=== PATIENT | male | born 1975 | race Two or more races ===

== ENCOUNTER 2018-07-21 17:32 | Inpatient (IN) | payer OTHER ==
[2018-07-21 20:40] VITALS: BMI 20.9
[2018-07-22] MEDS ORDERED: MENTHOL/PHENOL 1 EACH UD MM PRN (00:15)
[2018-07-22] MEDS ORDERED: NICOTINE POLACRILEX 2 MG GUM BC PRN (00:15)
[2018-07-22] MEDS ORDERED: MAGNESIUM CITRATE 300 ML BOTTLE PO PRN (00:15)
[2018-07-22] MEDS ORDERED: MAGNESIUM HYDROX 2400MG/30ML ORAL SUSPENSION 30 ML CUP PO PRN (00:15)
[2018-07-22] MEDS ORDERED: LOPERAMIDE HCL 2 MG CAPSULE PO PRN (00:15)
[2018-07-22] MEDS ORDERED: ACETAMINOPHEN 325 MG TABLET (FP) PO PRN (00:15)
[2018-07-22] MEDS ORDERED: MAG HYDROX/AL HYDROX/SIMETH 30 ML UNIT-DOSE CUP PO PRN (00:15)
[2018-07-22] MEDS ORDERED: IBUPROFEN 400 MG TABLET (FP) PO PRN (00:15)
[2018-07-22] MEDS ORDERED: chlordiazePOXIDE HCL 25 MG CAPSULE PO PRN ×2 (00:15→03:25)
[2018-07-22] MEDS ORDERED: P-EPHED 60MG/TRIPROLIDI 2.5MG TABLET PO PRN (00:15)
[2018-07-22] MEDS ORDERED: guaiFENesin 200 MG/10 ML 10 ML UNIT-DOSE CUPS PO PRN (00:18)
[2018-07-22] MEDS ORDERED: BUPRENORPHINE/NALOXONE 8 MG/2 MG FILM PACKET SL ONE ×2 (00:21→03:30)
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
[2018-07-22] MEDS: chlordiazePOXIDE HCL 25 MG CAPSULE PO SCH ×4 (05:00→22:50)
[2018-07-22] MEDS ORDERED: PRENATAL VITAMINS W/ FOLIC ACID TABLET (FP) PO SCH (10:00)
[2018-07-22] MEDS: BUPRENORPHINE/NALOXONE 2 MG/0.5 MG FILM PACKET SL SCH ×2 (10:27→22:49)
--- NOTE | 2018-07-22 14:44 | PN ---
S CIWA - CIWA Score Nausea/Vomitin-No Nausea/No Vomiting Muscle Tremors: 2 Anxiety: 3 Agitation: 0-Normal Activity Paroxysmal Sweats: 2 Orientation: 0-Oriented Tacttile Disturbances: 2-Mild Itch/Numbness/Burn Auditory Disturbances: 0-None Visual Disturbances: 2-Mild Sensitivity Headache: 0-None Present CIWA-Ar Total Score: 11 BHS Progress Note (SOAP) Subjective: Nasal Congestion, Sweating, Tremors, Hot / Cold Sensations. Objective: PATIENT A & O X 3. IN NO ACUTE DISTRESS. 07/22/18 14:43 Vital Signs Temperature 98.1 F 07/22/18 13:51 Pulse Rate 68 07/22/18 13:51 Respiratory Rate 18 07/22/18 13:51 Blood Pressure 129/70 07/22/18 13:51 O2 Sat by Pulse Oximetry (%) ADMISSION LAB RESULTS PENDING. Assessment: 07/22/18 14:44 WITHDRAWAL SYMPTOMS. Plan: CONTINUE DETOX. PRN ACTIFED FOR NASAL CONGESTION.
--- NOTE | 2018-07-22 16:47 | EKG ---
Test Reason : Blood Pressure : / mmHG Vent. Rate : 048 BPM Atrial Rate : 048 BPM P-R Int : 112 ms QRS Dur : 100 ms QT Int : 470 ms P-R-T Axes : 061 052 058 degrees QTc Int : 419 ms SINUS BRADYCARDIA OTHERWISE NORMAL ECG NO PREVIOUS ECGS AVAILABLE Confirmed by MICHAEL FARRIS MD ([id number]) on 07/22/2018 4:47:34 PM Referred By: Confirmed By:MICHAEL FARRIS MD
[2018-07-22 21:44] LABS: URINE APPEARANCE TURBID; URINE BILIRUBIN NEGATIVE (<2.0 mg/dL); URINE COLOR YELLOW; URINE GLUCOSE (UA) NEGATIVE (NEGATIVE); URINE KETONE NEGATIVE (NEGATIVE); URINE LEUK ESTERASE NEGATIVE (NEGATIVE); URINE NITRITE NEGATIVE (NEGATIVE); URINE PROTEIN NEGATIVE (NEGATIVE); URINE UROBILINOGEN NEGATIVE mg/dL (0.2-1.0)
[2018-07-22] MEDS ORDERED: MELATONIN 5 MG TABLETS PO PRN (22:00)
[2018-07-22] MEDS ORDERED: THIAMINE HCL 100 MG TABLET (FP) PO SCH (22:00)
[2018-07-22] MEDS ORDERED: chlordiazePOXIDE HCL 25 MG CAPSULE PO SCH (23:00)
[2018-07-23] MEDS ORDERED: chlordiazePOXIDE HCL 25 MG CAPSULE PO SCH ×2 (05:00→23:00)
[2018-07-23 06:27] VITALS: PULSE 55
--- NOTE | 2018-07-23 08:54 | PN ---
[facility] Progress Note Note: pt refused to continue with his detox. pt refused to accept any medication, counseling, or assistance of any kind. pt refused to wait for any discharge papers or to be escorted by nursing staff. Pt left AMA and escorted by security.
--- NOTE | 2018-07-23 09:02 | DS ---
[facility] Detox Discharge Summary Admission Date: 07/22/18 - Physical Exam Results Vital Signs: Vital Signs Temperature 97.9 F 07/23/18 06:27 Pulse Rate 55 L 07/23/18 06:27 Respiratory Rate 16 07/23/18 06:27 Blood Pressure 104/61 07/23/18 06:27 O2 Sat by Pulse Oximetry (%) - Treatment Hospital Course: Discharged Condition Good - Medication Discharge Medications: Ambulatory Orders NK [No Known Home Medication] 07/22/18 - AMA Did Patient Leave Against Medical Advice: Yes (going home)
[2018-07-23 09:09] VITALS: BP 112/58; TEMP 98.9
[2018-07-23] MEDS ORDERED: BUPRENORPHINE/NALOXONE 2 MG/0.5 MG FILM PACKET SL SCH (10:00)
[2018-07-23 10:08] LABS: MCH 30.5 pg (25.7-33.7); MCHC 34.2 g/dl (32.0-35.9); MEAN PLT VOLUME 8.8 fl (7.5-11.1); PLATELET COUNT 333 K/MM3 (134-434); RDW 13.6 % (11.9-15.9); WHITE BLOOD COUNT 11.5 K/mm3 (4.0-10.0)
[2018-07-23 10:52] LABS: ALBUMIN 3.7 g/dl (3.4-5.0); ALK PHOS 101 U/L (45-117); ANION GAP 7 MMOL/L (8-16); BILIRUBIN,TOTAL 0.4 mg/dL (0.2-1); BLOOD UREA NITROGEN 8 mg/dL (7-18); CALCIUM 9.7 mg/dL (8.5-10.1); CHLORIDE 104 mmol/L (98-107); CO2 26 mmol/L (21-32); CREATININE 0.7 mg/dL (0.55-1.3); GLUCOSE,RANDOM 100 mg/dL (74-106); POTASSIUM 4.4 mmol/L (3.5-5.1); SGOT/AST 16 U/L (15-37); SGPT/ALT 12 U/L (13-61); SODIUM 137 mmol/L (136-145); TOT PROT 7.3 g/dl (6.4-8.2)
[2018-07-23] MEDS ORDERED: BUPRENORPHINE/NALOXONE 2 MG/0.5 MG FILM PACKET SL ONE (18:00)
[2018-07-24] MEDS ORDERED: chlordiazePOXIDE 5 MG CAPSULE PO SCH ×2 (05:00→23:00)
[2018-07-25] MEDS ORDERED: chlordiazePOXIDE HCL 10 MG CAPSULE PO SCH ×2 (05:00→23:00)
[2018-07-25] MEDS ORDERED: BUPRENORPHINE/NALOXONE 2 MG/0.5 MG FILM PACKET SL ONE (10:00)
== END 2018-07-23 08:22 | disposition left against medical advice (07) | DRG 770 ==
LOC: YASAS 17:32 → UNDOADMIN 22:01 → Y3N 22:01 → Y6N 07-22 02:37
PROVIDERS: ADMIT Surgery; ATTEND Surgery
PROC: HZ2ZZZZ Detoxification Services for Substance Abuse Treatment (ICD-10-PCS; principal; 2018-07-22)
DX: F10.230 Alcohol dependence with withdrawal, uncomplicated (principal); F17.210 Nicotine dependence, cigarettes, uncomplicated; F32.9 Major depressive disorder, single episode, unspecified; F41.9 Anxiety disorder, unspecified; J45.20 Mild intermittent asthma, uncomplicated
CPT/HCPCS: 36415; 80053; 81003; 85027; 86593; 93005; 93010

== ENCOUNTER 2018-11-30 14:30 | Inpatient (IN) | payer OTHER | END 2018-12-02 10:00 | disposition left against medical advice (07) | LOC: YASAS 14:30 → Y3N 19:18 ==

== ENCOUNTER 2019-03-05 13:45 | Inpatient (IN) | payer OTHER ==
[2019-03-05 14:32] VITALS: BMI 19.9
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
[2019-03-05] MEDS ORDERED: METHADONE HCL 10 MG TABLET (FOR DETOX USE ONLY) PO ONE (17:12)
[2019-03-05] MEDS ORDERED: NALOXONE HCL 0.4 MG/ML VIAL IM PRN (17:12)
[2019-03-05] MEDS ORDERED: chlordiazePOXIDE HCL 10 MG CAPSULE PO PRN (17:12)
[2019-03-05] MEDS ORDERED: MAGNESIUM HYDROX 2400MG/30ML ORAL SUSPENSION 30 ML CUP PO PRN (17:12)
[2019-03-05] MEDS ORDERED: hydrOXYzine PAMOATE 25 MG CAPSULE (FP) PO PRN (17:12)
[2019-03-05] MEDS ORDERED: IBUPROFEN 400 MG TABLET (FP) PO PRN (17:12)
[2019-03-05] MEDS ORDERED: MELATONIN 5 MG TABLETS PO PRN (17:12)
[2019-03-05] MEDS ORDERED: cloNIDine HCL 0.1 MG TABLET PO PRN (17:12)
[2019-03-05] MEDS ORDERED: MENTHOL/PHENOL 1 EACH UD MM PRN (17:12)
[2019-03-05] MEDS ORDERED: MAG HYDROX/AL HYDROX/SIMETH 30 ML UNIT-DOSE CUP PO PRN (17:12)
[2019-03-05] MEDS ORDERED: NICOTINE POLACRILEX 2 MG GUM BUC PRN (17:12)
[2019-03-05] MEDS ORDERED: METHOCARBAMOL 500 MG TABLET PO PRN (17:12)
[2019-03-05] MEDS ORDERED: MAGNESIUM CITRATE 300 ML BOTTLE PO PRN (17:12)
[2019-03-05] MEDS ORDERED: BISMUTH SUBSALICYLATE 524 MG/30 ML UD PO PRN (17:12)
[2019-03-05] MEDS ORDERED: ACETAMINOPHEN 325 MG TABLET (FP) PO PRN ×2 (17:12)
[2019-03-05] MEDS ORDERED: chlordiazePOXIDE HCL 25 MG CAPSULE PO ONE (17:12)
[2019-03-05] MEDS ORDERED: ALBUTEROL SO4 8 GM HFA INHALER IH PRN (17:14)
[2019-03-05] MEDS: chlordiazePOXIDE HCL 25 MG CAPSULE PO SCH (23:56)
[2019-03-05] MEDS: THIAMINE HCL 100 MG TABLET (FP) PO SCH (23:56)
[2019-03-06] MEDS: chlordiazePOXIDE HCL 25 MG CAPSULE PO SCH ×3 (05:13→22:28)
[2019-03-06 09:17] LABS: ALBUMIN 3.5 g/dl (3.4-5.0); BILIRUBIN,TOTAL 0.5 mg/dL (0.2-1); CALCIUM 9.6 mg/dL (8.5-10.1); CREATININE 0.8 mg/dL (0.55-1.3); POTASSIUM 4.3 mmol/L (3.5-5.1)
[2019-03-06 09:21] LABS: HEMATOCRIT 40.9 % (35.4-49); HEMOGLOBIN 13.6 GM/dL (11.7-16.9); MCH 30.4 pg (25.7-33.7); MCHC 33.3 g/dl (32.0-35.9); MEAN CELL VOLUME 91.2 fl (80-96); MEAN PLT VOLUME 8.5 fl (7.5-11.1); PLATELET COUNT 316 K/MM3 (134-434); RBC 4.48 M/mm3 (4.00-5.60); RDW 13.2 % (11.9-15.9); WHITE BLOOD COUNT 13.5 K/mm3 (4.0-10.0)
[2019-03-06] MEDS ORDERED: PRENATAL VITAMINS W/ FOLIC ACID TABLET (FP) PO SCH (10:00)
[2019-03-06] MEDS ORDERED: METHADONE HCL 5 MG TABLET (FOR DETOX USE ONLY) PO ONE (10:00)
[2019-03-06] MEDS ORDERED: LIDOCAINE 5% TOPICAL PATCH TP SCH (12:00)
--- NOTE | 2019-03-06 16:52 | PN ---
[facility] CIWA - CIWA Score Nausea/Vomitin-Mild Nausea/No Vomiting Muscle Tremors: 4-Moderate,w/Arms Extend Anxiety: 3 Agitation: 2 Paroxysmal Sweats: 3 Orientation: 0-Oriented Tacttile Disturbances: 0-None Auditory Disturbances: 0-None Visual Disturbances: 0-None Headache: 0-None Present CIWA-Ar Total Score: 13 [facility] COWS - Scale Resting Pulse: 0= MD 80 or Below Sweatin= Chills/Flushing Restless Observation: 1= Difficult to Sit Still Pupil Size: 0= Normal to Room Light Bone or Joint Aches: 2= Severe Diffuse Aches Runny Nose/ Eye Tearin= Runny Nose/Eyes GI Upset > 30mins: 3= Vomiting/Diarrhea Tremor Observation of Outstretched Hands: 2= Slight Tremor Visible Yawning Observation: 0= None Anxiety or Irritability: 2=Irritable/Anxious Goose Flesh Skin: 0=Smooth Skin COWS Score: 13 [facility] Progress Note (SOAP) Subjective: Agitated, lower back pain, interrupted sleep Objective: 03/06/19 16:53 Last Vital Signs Temp Pulse Resp BP Pulse Ox 98.1 F 68 18 120/50 L 03/06/19 13:59 03/06/19 13:59 03/06/19 13:59 03/06/19 13:59 Laboratory Tests 03/06/19 03/06/19 03/06/19 07:40 07:40 07:40 WBC 13.5 H RBC 4.48 Hgb 13.6 Hct 40.9 MCV 91.2 MCH 30.4 MCHC 33.3 RDW 13.2 Plt Count 316 MPV 8.5 Sodium 137 Potassium 4.3 Chloride 102 Carbon Dioxide 28 Anion Gap 7 L BUN 11.0 Creatinine 0.8 Est GFR (CKD-EPI)AfAm 126.81 Est GFR (CKD-EPI)NonAf 109.41 Random Glucose 90 Calcium 9.6 Total Bilirubin 0.5 AST 16 ALT 11 L Alkaline Phosphatase 90 Total Protein 7.0 Albumin 3.5 RPR Titer Nonreactive Labs reviewed: wbc 13.5 Assessment: 03/06/19 16:55 Withdrawal sxs Noted with leukocytosis Plan: Continue detox Encouraged PO water intake LBP: lidocaine patch 5% daily (12 hr on, 12 hr off) Leukocytosis: repeat CBC
[2019-03-06] MEDS ORDERED: LIDOCAINE PATCH REMOVAL MC SCH (22:00)
[2019-03-06] MEDS: THIAMINE HCL 100 MG TABLET (FP) PO SCH (22:28)
[2019-03-07] MEDS ORDERED: chlordiazePOXIDE 5 MG CAPSULE PO SCH (05:00)
[2019-03-07 07:04] VITALS: BP 129/69; PULSE 52; TEMP 97.9
--- NOTE | 2019-03-07 07:12 | EKG ---
Test Reason : Blood Pressure : / mmHG Vent. Rate : 054 BPM Atrial Rate : 054 BPM P-R Int : 114 ms QRS Dur : 106 ms QT Int : 470 ms P-R-T Axes : 068 058 061 degrees QTc Int : 445 ms SINUS BRADYCARDIA WITH SINUS ARRHYTHMIA INCOMPLETE RIGHT BUNDLE BRANCH BLOCK BORDERLINE ECG WHEN COMPARED WITH ECG OF 22-JUL-2018 03:11, NO SIGNIFICANT CHANGE WAS FOUND Confirmed by CHARLIE FERRIS MD ([id number]) on 03/07/2019 7:12:14 AM Referred By: Confirmed By:CHARLIE FERRIS MD
[2019-03-07] MEDS ORDERED: METHADONE HCL 10 MG TABLET (FOR DETOX USE ONLY) PO ONE (10:00)
[2019-03-08] MEDS ORDERED: chlordiazePOXIDE HCL 10 MG CAPSULE PO PRN
[2019-03-08] MEDS ORDERED: chlordiazePOXIDE HCL 10 MG CAPSULE PO SCH (05:00)
[2019-03-08] MEDS ORDERED: METHADONE HCL 5 MG TABLET (FOR DETOX USE ONLY) PO ONE (06:00)
[2019-03-09] MEDS ORDERED: chlordiazePOXIDE HCL 10 MG CAPSULE PO ONE (05:00)
== END 2019-03-07 07:45 | disposition left against medical advice (07) | DRG 770 ==
LOC: YASAS 13:45 → Y6N 17:58
PROVIDERS: ADMIT Surgery; ATTEND Surgery
PROC: HZ2ZZZZ Detoxification Services for Substance Abuse Treatment (ICD-10-PCS; principal; 2019-03-05)
DX: F11.20 Opioid dependence, uncomplicated (principal); F10.230 Alcohol dependence with withdrawal, uncomplicated; F17.210 Nicotine dependence, cigarettes, uncomplicated; J45.20 Mild intermittent asthma, uncomplicated; D72.829 Elevated white blood cell count, unspecified; Z91.5 Personal history of self-harm
CPT/HCPCS: 36415; 80053; 85027; 86593; 93005; 93010

== ENCOUNTER 2021-12-21 09:54 | Inpatient (IN) | payer OTHER ==
[2021-12-21 10:43] VITALS: BMI 22.0
[2021-12-21] MEDS ORDERED: methaDONE HCL 10 MG TABLET (FOR DETOX USE ONLY) PO ONE (11:43)
[2021-12-21] MEDS ORDERED: BENZOCAINE/MENTHOL (CHLORASEPTIC ) LOZENGE MM PRN (11:43)
[2021-12-21] MEDS ORDERED: cloNIDine HCL 0.1 MG TABLET PO PRN (11:43)
[2021-12-21] MEDS ORDERED: MAGNESIUM CITRATE 300 ML BOTTLE PO PRN (11:43)
[2021-12-21] MEDS ORDERED: ACETAMINOPHEN 325 MG TABLET (FP) PO PRN ×2 (11:43)
[2021-12-21] MEDS ORDERED: LOPERAMIDE HCL 2 MG CAPSULE PO PRN (11:43)
[2021-12-21] MEDS ORDERED: MAGNESIUM HYDROX 2400MG/30ML ORAL SUSPENSION 30 ML CUP PO PRN (11:43)
[2021-12-21] MEDS ORDERED: NICOTINE 10 MG CARTRIDGE (INHALER) IH PRN (11:43)
[2021-12-21] MEDS ORDERED: BISMUTH SUBSALICYLATE 524 MG/30 ML PO PRN (11:43)
[2021-12-21] MEDS ORDERED: IBUPROFEN 600 MG TABLET (FP) PO PRN (11:43)
[2021-12-21] MEDS ORDERED: ONDANSETRON *ODT* 4 MG TABLET SL PRN (11:43)
[2021-12-21] MEDS ORDERED: DICYCLOMINE HCL 10 MG CAPSULE PO PRN (11:43)
[2021-12-21] MEDS ORDERED: METHOCARBAMOL 500 MG TABLET PO PRN (11:43)
[2021-12-21] MEDS ORDERED: MAG HYDROX/AL HYDROX/SIMETH 30 ML UNIT-DOSE CUP PO PRN (11:43)
[2021-12-21] MEDS ORDERED: IBUPROFEN 400 MG TABLET (FP) PO PRN (11:43)
[2021-12-21] MEDS ORDERED: ALBUTEROL SO4 HFA INHALER IH PRN (11:45)
[2021-12-21] MEDS ORDERED: methaDONE HCL 10 MG TABLET (FOR DETOX USE ONLY) ONE (13:52)
[2021-12-21] MEDS ORDERED: cloNIDine HCL 0.1 MG TABLET ONE (13:52)
[2021-12-21] MEDS: hydrOXYzine PAMOATE 25 MG CAPSULE (FP) PO SCH ×3 (14:00→22:39)
[2021-12-21] MEDS ORDERED: MELATONIN 5 MG TABLETS PO SCH (22:00)
[2021-12-21] MEDS ORDERED: THIAMINE HCL 100 MG TABLET (FP) PO SCH (22:00)
[2021-12-22] MEDS: hydrOXYzine PAMOATE 25 MG CAPSULE (FP) PO SCH ×2 (05:29→11:21)
[2021-12-22 09:05] LABS: HEMATOCRIT 40.2 % (35.4-49); HEMOGLOBIN 13.3 GM/dL (11.7-16.9); MCH 29.5 pg (25.7-33.7); MCHC 33.1 g/dl (32.0-35.9); MEAN CELL VOLUME 89.3 fl (80-96); MEAN PLT VOLUME 9.5 fl (7.5-11.1); PLATELET COUNT 282 10^3/uL (134-434); RDW 13.3 % (11.9-15.9); WHITE BLOOD COUNT 9.3 K/mm3 (4.0-10.0)
[2021-12-22 09:30] LABS: ALBUMIN 3.4 g/dl (3.4-5.0); BLOOD UREA NITROGEN 12.6 mg/dL (7-18); CALCIUM 9.2 mg/dL (8.5-10.1)
[2021-12-22 09:31] LABS: CREATININE 0.6 mg/dL (0.55-1.3)
[2021-12-22 09:33] LABS: BILIRUBIN,TOTAL 0.4 mg/dL (0.2-1); TOT PROT 6.7 g/dl (6.4-8.2)
[2021-12-22] MEDS ORDERED: PRENATAL VITAMINS W/ FOLIC ACID TABLET (FP) PO SCH (10:00)
[2021-12-22 10:35] VITALS: BP 131/69; PULSE 40; TEMP 96.9
[2021-12-23] MEDS ORDERED: methaDONE HCL 10 MG TABLET (FOR DETOX USE ONLY) PO ONE (10:00)
[2021-12-25] MEDS ORDERED: methaDONE HCL 10 MG TABLET (FOR DETOX USE ONLY) PO ONE (10:00)
== END 2021-12-22 08:30 | disposition left against medical advice (07) | DRG 770 ==
LOC: YASAS 09:54 → Y6N 15:17
PROVIDERS: ADMIT Allergy & Immunology; ATTEND Surgery
PROC: HZ2ZZZZ Detoxification Services for Substance Abuse Treatment (ICD-10-PCS; principal; 2021-12-21)
DX: F11.23 Opioid dependence with withdrawal (principal); F14.10 Cocaine abuse, uncomplicated; F12.20 Cannabis dependence, uncomplicated; F17.210 Nicotine dependence, cigarettes, uncomplicated; F41.8 Other specified anxiety disorders; J45.20 Mild intermittent asthma, uncomplicated; R63.4 Abnormal weight loss; Z68.22 Body mass index [BMI] 22.0-22.9, adult; Z87.820 Personal history of traumatic brain injury
CPT/HCPCS: 36415; 80053; 85027; 86780; 93005; 93010; C9803-CS; J0735; U0003; U0005

== ENCOUNTER 2024-03-13 11:36 | Inpatient (IN) | payer OTHER ==
[2024-03-13 14:08] VITALS: BMI 22.1
[2024-03-13] MEDS ORDERED: ACETAMINOPHEN 325 MG TABLET (FP) PO PRN (14:32)
[2024-03-13] MEDS ORDERED: BISMUTH SUBSALICYLATE 524 MG/30 ML PO PRN (14:32)
[2024-03-13] MEDS ORDERED: DICYCLOMINE HCL 10 MG CAPSULE PO PRN (14:32)
[2024-03-13] MEDS ORDERED: hydrOXYzine PAMOATE 25 MG CAPSULE (FP) PO PRN (14:32)
[2024-03-13] MEDS ORDERED: IBUPROFEN 400 MG TABLET (FP) PO PRN (14:32)
[2024-03-13] MEDS ORDERED: P-EPHED 60MG/TRIPROLIDI 2.5MG TABLET PO PRN (14:32)
[2024-03-13] MEDS ORDERED: POLYETHYLENE GLYCOL (HEALTHYLAX) 3350 17 GM PACKET PO PRN (14:32)
[2024-03-13] MEDS ORDERED: METHOCARBAMOL 500 MG TABLET PO PRN (14:32)
[2024-03-13] MEDS ORDERED: MAGNESIUM HYDROX 2400MG/30ML ORAL SUSPENSION 30 ML CUP PO PRN (14:32)
[2024-03-13] MEDS ORDERED: ONDANSETRON *ODT* 4 MG TABLET SL PRN (14:32)
[2024-03-13] MEDS ORDERED: NICOTINE POLACRILEX 2 MG LOZENGE BC PRN (14:32)
[2024-03-13] MEDS ORDERED: NALOXONE (NARCAN) HCL 4 MG/0.1 ML SPRAY NS PRN (14:32)
[2024-03-13] MEDS ORDERED: LOPERAMIDE HCL 2 MG CAPSULE PO PRN (14:32)
[2024-03-13] MEDS ORDERED: IBUPROFEN 600 MG TABLET (FP) PO PRN (14:32)
[2024-03-13] MEDS ORDERED: guaiFENesin 600 MG TABLET.ER (FP) PO PRN (14:32)
[2024-03-13] MEDS ORDERED: BENZOCAINE/MENTHOL (CHLORASEPTIC ) LOZENGE MM PRN (14:32)
[2024-03-13] MEDS ORDERED: BENZONATATE 200 MG CAPSULE PO PRN (14:32)
[2024-03-13] MEDS ORDERED: NICOTINE POLACRILEX 2 MG GUM BUC PRN (14:32)
[2024-03-13] MEDS ORDERED: NALOXONE HCL 0.4 MG/ML VIAL IM PRN (14:32)
[2024-03-13] MEDS ORDERED: MAG HYDROX/AL HYDROX/SIMETH 30 ML UNIT-DOSE CUP PO PRN (14:32)
[2024-03-13 20:59] VITALS: BP 111/70; PULSE 69; RESP 18; TEMP 98.4
[2024-03-13] MEDS: SULFAMETHOXAZOLE/TRIMETHOPRIM 800MG/160MG D.S. TABLET PO SCH (22:24)
[2024-03-13] MEDS: THIAMINE 100 MG TABLET PO SCH (22:25)
[2024-03-13] MEDS: MELATONIN 5 MG TABLETS PO SCH (22:25)
[2024-03-14] MEDS ORDERED: PRENATAL VITAMINS W/ FOLIC ACID TABLET (FP) PO SCH (10:00)
== END 2024-03-14 08:00 | disposition left against medical advice (07) | DRG 770 ==
LOC: YASAS 11:36 → Y6N 15:37
PROVIDERS: ADMIT Allergy & Immunology; ATTEND Surgery
PROC: HZ2ZZZZ Detoxification Services for Substance Abuse Treatment (ICD-10-PCS; principal; 2024-03-13)
DX: F11.20 Opioid dependence, uncomplicated (principal); F14.20 Cocaine dependence, uncomplicated; F12.20 Cannabis dependence, uncomplicated; F17.210 Nicotine dependence, cigarettes, uncomplicated; F41.8 Other specified anxiety disorders; F43.10 Post-traumatic stress disorder, unspecified; F32.A Depression, unspecified; G62.9 Polyneuropathy, unspecified; I10 Essential (primary) hypertension; J45.20 Mild intermittent asthma, uncomplicated; Z59.02 Unsheltered homelessness
CPT/HCPCS: 80305; 93005; 93010